=== PATIENT | male | born 2000 | race Caucasian/White ===

== ENCOUNTER 2024-05-30 15:12 | Emergency (ER) | payer SELFPAY ==
[~2024-05-30] VITALS: Ht 180.3 cm; Wt 75.0 kg
[2024-05-30 15:15] VITALS: O2SAT 98
[2024-05-30] MEDS: DIPHENHYDRAMINE 50MG/ML VIAL IM STA (15:34)
[2024-05-30] MEDS: LORAZEPAM 2MG/ML INJ IM ONE (15:34)
[2024-05-30] MEDS ORDERED: HALOPERIDOL LACTATE 5MG/ML VIAL IM ONE (16:15)
[2024-05-30 16:55] LABS: *AMPHETAMINES SCREEN URINE PRESUMPTIVE POSITIVE (NEGATIVE); *BARBITURATES SCREEN URINE NEGATIVE (NEGATIVE); *BENZODIAZEPINES SCREEN URINE NEGATIVE (NEGATIVE); *COCAINE SCREEN URINE NEGATIVE (NEGATIVE); CANNABINOID URINE SCREEN PRESUMPTIVE POSITIVE (NEGATIVE); ECSTASY MDMA SCREEN URINE NEGATIVE (NEGATIVE); METHADONE URINE SCREEN NEGATIVE (NEGATIVE); OPIATES URINE SCREEN NEGATIVE (NEGATIVE); PHENCYCLIDINE URINE SCREEN NEGATIVE (NEGATIVE)
[2024-05-30 17:49] LABS: HEMATOCRIT 45.3 % (42.0-52.0); HEMOGLOBIN 15.3 g/dL (14.0-18.0); MEAN CORPUSCULAR HEMOGLOBIN 30.6 pg (28.0-32.0); MEAN CORPUSCULAR HGB CONC 33.8 g/dL (31.0-37.0); MEAN CORPUSCULAR VOLUME 90.6 fL (80.0-94.0); PLATELET 244 x1000/uL (130-400); RED CELL DISTRIBUTION WIDTH 14.2 % (11.6-14.6); WHITE BLOOD COUNT 14.1 x1000/uL (4.5-11.0)
[2024-05-30 17:56] LABS: CHLORIDE 103 mEq/L (98-107); POTASSIUM 3.8 mEq/L (3.5-5.1); SODIUM 137 mEq/L (136-145)
[2024-05-30 17:57] LABS: CALCIUM 10.3 mg/dL (8.7-10.4); CARBON DIOXIDE 25 mEq/L (21-32)
[2024-05-30 18:02] LABS: CREATININE 1.2 mg/dL (0.6-1.3); GLUCOSE 132 mg/dL (70-105); UREA NITROGEN BLOOD 9 mg/dL (9-23)
[2024-05-30 18:16] LABS: ETHANOL BLOOD < 10 mg/dL (<10)
[2024-05-30] MEDS: HALOPERIDOL LACTATE 5MG/ML VIAL IM NR (18:29)
[2024-05-30 23:05] VITALS: TEMP 98.5
[2024-05-31 05:58] VITALS: BP 126/82; PULSE 80; RESP 18
== END 2024-05-31 05:58 | disposition home or self-care (01) ==
LOC: ER 15:12
DX: R45.1 Restlessness and agitation (principal)
CPT/HCPCS: 80305; 80048; 80320; 85027; 36415; 96372; 99291; J1200; J1630; J2060; Z7610 ×2; G0480